=== PATIENT | male | born 1985 | race Two or more races ===

== ENCOUNTER 2023-11-02 13:09 | Emergency (ER) | payer SELFPAY ==
[2023-11-02] VITALS (27 sets, daily range): BP systolic 130–160; BP diastolic 86–112; PULSE 53–78; RESP 12–25; TEMP 36.6–37.2; O2SAT 100
--- NOTE | ~2023-11-02 | CT_ITS ---
EXAMINATION: CTA chest abdomen pelvis DATE: 11/02/2023 17:33 INDICATION: r/o dissection . TECHNIQUE: Computed tomography angiography (CTA) of the chest, abdomen, and pelvis was performed with 100 mL Omnipaque-350 intravenous contrast in the arterial phase. Automated exposure control and iter ative reconstruction technique were employed. The dose-length product was 994.29 mGy-cm. COMPARISON: None FINDINGS: CHEST: Thoracic aorta: No significant dilation. No dissection. Lung parenchyma and airways: Lungs and airways are clear. Thoracic inlet, axillae and chest wall: No thyroid or soft tissue mass. No axillary lymphadenopathy. Mediastinum: No mass or lymphadenopathy. Heart and pericardium: Normal heart size. No pericardial effusion. Coronary artery calcifications: Absent. Pleura: No effusion or mass. Thoracic bones: No acute osseous finding in the chest. ABDOMEN/PELVIS: Liver: Normal. Biliary/Gallbladder: Gallbladder is normal. No bile duct dilation. Pancreas: No mass or duct dilation. Spleen: Normal. Adrenals:No mass. Kidneys: No suspicious mass, obstructing stone, or hydronephrosis. GI tract: No small or large bowel dilation. Normal appendix. Mesentery/Peritoneum: No ascites, mass, or free air. Retroperitoneum: No mass Pelvis: Pelvic organs are within normal limits Soft Tissues: Soft tissues and body wall unremarkable. Abdominopelvic bones: No acute osseous finding in the abdomen/pelvis. IMPRESSION: Normal CTA chest, abdomen, and pelvis findings. Reviewed, dictated and finalized at location K.
--- NOTE | ~2023-11-02 | XR_ITS ---
EXAMINATION: XR chest 1V portable Exam Date/Time: 11/02/2023 16:45 CDT HISTORY: chest pain Comparison: None. RESULT: Lines, tubes, and devices: None. Lungs and pleura: Clear. Cardiomediastinal silhouette: Normal. Other: No acute osseous or upper abdominal finding. IMPRESSION: No acute cardiopulmonary process. Reviewed, dictated and finalized at location K.
--- NOTE | ~2023-11-02 | CT_ITS ---
EXAMINATION: CT brain wo con DATE: 11/02/2023 17:33 INDICATION: headache . TECHNIQUE: Computed tomography (CT) of the head was performed without intravenous contrast. The mA wa s adjusted according to patient size. Iterative reconstruction technique was employed. The dose-lengt h product was 605.33 mGy-cm. COMPARISON: None. FINDINGS: No acute intracranial hemorrhage or extra-axial fluid collection. No hydrocephalus, mass, or herniation. No acute ischemic infarct. Unremarkable dural venous sinus attenuation. No acute osseous abnormality. Mild ethmoid thickening, small sphenoid retention cyst or polyp, the remaining aerated spaces are jennifer ar. IMPRESSION: No acute intracranial process. Reviewed, dictated and finalized at location K.
--- NOTE | 2023-11-02 16:25 | ECG_ITS ---
Test Date: 2023-11-02 18:24:09 Measurements Intervals [place] Rate: 62 P: 63 RI: 161 QRS: 71 QRSD: 79 T: 51 QT: 371 QTc: 379 Interpretive Statements SINUS RHYTHM EARLY REPOLARIZATION NORMAL ECG No previous ECG available for comparison Electronically Signed On 11-04-2023 07:12:23 CDT by Gerry Escobar M.D.
--- NOTE | 2023-11-02 16:28 | ED.HA ---
HPI - Headache General Chief Complaint: Headache Stated Complaint: arslan CARSON Time Seen by Provider: 11/02/23 15:21 History of Present Illness HPI Narrative: This is a 38-year-old male primarily Creole speaking gentleman who presents to the emergency department via walk-in triage. Patient states he has been having intermittent headaches, left-sided neck, chest and abdominal pain for the last 2 months. Patient states he feels profoundly weak and is endorsing intermittent chest discomfort. Denies any fever, chills, nauseousness, vomiting, vision changes. He states he sometimes gets paresthesias/on the left side that are intermittent in nature. Denies any GI or symptoms otherwise. Patient does have a family history of first-degree family members dying at a young age from unknown causes and does appear more annoyed and habitus a very skinny, tall lanky extremities. There have been formally diagnosed or had any history of aortic pathology. Related Data Allergies Allergy/AdvReac Type Severity Reaction Status Date / Time No Known Allergies Allergy Verified 11/02/23 13:12 Review of Systems Review of Systems: As reviewed above in HPI Exam Narrative: GENERAL: [Well-appearing, well-nourished, and in no acute distress.] HEAD: [Normocephalic, atraumatic.] EYES: [PERRLA and EOMI.] ENT: Nares clear, no rhinorrhea or epistaxis. Mucous membranes moist. NECK: Supple. CHEST: [Clear to auscultation. No respiratory distress.] HEART: [Regular rate and rhythm]. No murmur heard. Left-sided radial pulse appears slightly diminished compared to the right-sided radial pulse. Normal dorsalis pedis pulses and warm well-perfused extremities. ABDOMEN: [Soft, nondistended], [nontender], [No rigidity or guarding] EXTREMITIES: Normal range of motion. [No edema.] SKIN: Warm, dry, no rash. NEURO: [No focal deficits]. Alert and oriented [x3.] No ataxia, ambulating unassisted, normal sensory examination the arms and legs. PSYCH: [Normal mood and affect.] Course Vital Signs Vital signs: Vital Signs Temperature 36.6 C 11/02/23 13:37 Pulse Rate 73 11/02/23 13:37 Respiratory Rate 16 11/02/23 13:37 Blood Pressure 149/92 H 11/02/23 13:37 Pulse Oximetry 100 11/02/23 13:37 Oxygen Delivery Room Air 11/02/23 13:37 Temperature 37.2 C 11/02/23 17:15 Pulse Rate 62 11/02/23 17:15 Respiratory Rate 18 11/02/23 17:15 Blood Pressure 151/99 H 11/02/23 17:15 Pulse Oximetry 100 11/02/23 17:15 Oxygen Delivery Room Air 11/02/23 13:37 MDM - Headache MDM Narrative Medical decision making narrative: This is a 38-year-old male primarily [place] Creole speaking 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 Patient has been complaining of intermittent headache, neck pain, chest and abdominal pain for last 2 months mostly on the left side. He states that the symptoms are intermittent and not associated with anything in particular. He is very tall, lanky gentleman that appears more for noted habitus with a family history of sudden with unexplained etiology at a young age. This raises suspicion for potential aortic pathology given his symptomatology however low suspicion given his reassuring vital signs and examination otherwise. Other causes such as a migraine headache, dehydration, infectious pathology not excluded. He will be treated for migraine and CT scans of his head and CT abdomen pelvis and chest with angiography were obtained to obtain views for any kind of aortic pathology. Chest x-ray EKG and troponin in addition to basic laboratory studies were obtained. Patient's evaluation was reassuring with no leukocytosis or anemia on his labs. Chemistry panel with normal electrolytes, normal creatinine function. Negative troponin. Normal hepatic function panel. CTA showed no acute abnormalities in the chest abdomen or pelvis and a negative head CT was also very reassuring. Patient was re-evaluated after me
[2023-11-02 16:51] LABS: Basophils Percent Auto 0.7 % (0.2-1.2); Eosinophils Absolute Auto 0.2 K/mm3 (0-0.3); Eosinophils Percent Auto 4.1 % (0-4.4); Hematocrit 40.6 % (42.0-52.0); Hemoglobin 13.5 g/dL (14.0-18.0); Immature Granulocyte Absolute 0.01 K/mm3 (0.00-0.031); Immature Granulocyte Percent A 0.2 % (0-0.5); Lymphocytes Absolute Auto 2.02 K/mm3 (0.9-3.2); Lymphocytes Percent Auto 49.1 % (18.3-44.2); Mean Corpuscular HGB Conc 33.3 g/dl (32-36); Mean Corpuscular Hemoglobin 30.3 pg (26-34); Mean Platelet Volume 10.6 fl (7.4-10.4); Monocytes Absolute Auto 0.3 K/mm3 (0.1-0.6); Monocytes Percent Auto 7.8 % (2.6-8.5); Neutrophils Absolute Auto 1.6 K/mm3 (1.3-6.7); Neutrophils Percent Auto 38.1 % (45.5-73.1); Platelet Count Result 215 k/mm3 (150-375); Red Blood Count 4.46 M/mm3 (4.6-6.20); Red Cell Distribution Width 11.5 % (11.5-14.5); White Blood Count 4.1 K/mm3 (4.5-10.0)
[2023-11-02 17:01] LABS: Alanine Aminotransferase 13 U/L (6-50); Albumin Level 4.6 g/dL (3.5-5.1); Alkaline Phosphatase 45 U/L (38-126); Anion Gap 11 mmol/L (4-12); Aspartate Amino Transferase 25 U/L (17-59); Bilirubin,Total 1.2 mg/dL (0.2-1.3); Blood Urea Nitrogen 8 mg/dL (9-20); Calcium 9.7 mg/dL (8.4-10.2); Carbon Dioxide 28 mmol/L (22-30); Chloride 97 mmol/L (98-107); Estimated Glomerular Filt Rate > 60; Glucose 89 mg/dL (65-110); Potassium 3.9 mmol/L (3.4-5.0); Sodium 136 mmol/L (137-145)
[2023-11-02 17:13] LABS: Troponin I < 0.012 ng/mL (0.000-0.034)
[2023-11-02] MEDS: LACTATED RINGERS 1,000 ML 999 ML IV CONT (17:32)
[2023-11-02] MEDS: SODIUM CHLORIDE 0.9% IV 1,000 ML 999 ML IV CONT (18:38)
[2023-11-02] MEDS: diphenhydrAMINE HCl INJ 50 MG/ML VIAL 25 MG IV PUSH (18:38)
[2023-11-02] MEDS: PROCHLORPERAZINE EDISYLATE 10 MG/2 ML VIAL IV PUSH (18:38)
[2023-11-02] MEDS: dexAMETHasone SOD PHOS INJ 10 MG/ML 1 ML VIAL IV PUSH (18:39)
== END 2023-11-02 20:45 | disposition home or self-care (01) ==
PROVIDERS: Emergency Provider Student in an Organized Health Care Education/Training Program
DX: G43.909 Migraine, unspecified, not intractable, without status migrainosus (principal)
CPT/HCPCS: 36415; 70450; 71045; 71275; 74174; 80053; 84484; 85025; 93005; 96361; 96374; 96375; 99284; J0780; J1100; J1200; J7030; J7120; Q9967